=== PATIENT | male | born 1990 | race Two or more races ===

== ENCOUNTER 2025-05-01 17:55 | Emergency (ER) | payer OTHER ==
[~2025-05-01] VITALS: Ht 180.3 cm; Wt 86.2 kg
[2025-05-01] MEDS ORDERED: ACID REDUCER20 M1 PO (18:32)
[2025-05-01] MEDS ORDERED: BACLOFEN20 MG PO (18:33)
[2025-05-01] MEDS ORDERED: MOBIC7.5 MG PO (18:33)
[2025-05-01 18:34] VITALS: BP 135/84; O2SAT 99
[2025-05-01] MEDS ORDERED: KETOROLAC TROMETHAMINE 60 MG VIAL IM ONE (19:00)
[2025-05-01] MEDS ORDERED: ORPHENADRINE CITRATE 30 MG/ML AMPUL IM ONE (19:00)
[2025-05-01] MEDS ORDERED: KETO10TA2 PO (19:20)
[2025-05-01] MEDS ORDERED: NORFLEX100MG PO (19:20)
== END 2025-05-01 20:41 | disposition home or self-care (01) ==
LOC: ER 17:55
DX: M62.838 Other muscle spasm (principal); Z88.8 Allergy status to other drugs, medicaments and biological substances; Z91.013 Allergy to seafood